=== PATIENT | male | born 1955 | race Caucasian/White ===

== ENCOUNTER 2020-04-28 08:55 | Outpatient (REF) | payer MEDICARE, MEDICAID, SELFPAY | END 2020-04-28 08:56 | disposition home or self-care (01) | LOC: HO.LAB 08:55 | PROVIDERS: Visit Provider Internal Medicine | DX: Z20.828 Contact with and (suspected) exposure to other viral communicable diseases (principal) | CPT/HCPCS: C9803; U0003 ==

== ENCOUNTER 2020-04-28 09:14 | Emergency (ER) | payer MEDICARE, MEDICAID, SELFPAY ==
[2020-04-28 09:28] VITALS: BP 149/75; PULSE 98; RESP 22; TEMP 37.2; O2SAT 98; BMI 47.5
--- NOTE | 2020-04-28 09:42 | ECG_ITS ---
Test Reason : SOB Blood Pressure : / mmHG Vent. Rate : 099 BPM Atrial Rate : 099 BPM P-R Int : 178 ms QRS Dur : 094 ms QT Int : 342 ms P-R-T Axes : 052 004 070 degrees QTc Int : 438 ms Normal sinus rhythm Normal ECG When compared with ECG of 09-SEP-2003 07:24, No significant change was found Referred By: Jyotsna Cooper Electronically Signed By:SARAH HERNANDEZ MD
--- NOTE | 2020-04-28 09:43 | XR_ITS ---
EXAMINATION: XR CHEST CLINICAL INFORMATION: SOB. COMPARISON: None TECHNIQUE: Frontal view of the chest was obtained. FINDINGS: Lungs are hyperexpanded but clear of acute process. Heart size and pulmonary vascularity is normal. No gross bony abnormality seen. XR/XR chest 1V IMPRESSION: No acute cardiopulmonary process seen.
--- NOTE | 2020-04-28 09:51 | ED.SOB ---
HPI - SOB/Dyspnea General Chief Complaint: Dyspnea Stated Complaint: sob Time Seen by Provider: 04/28/20 09:29 Source: patient Mode of arrival: ambulatory History of Present Illness HPI Narrative: 64-year-old male with a past medical history of amyloidosis on chemotherapy, CHF, diabetes, asthma, presenting to ED complaining of worsening SOB and dry cough x4 days. Also reports mild chest/back discomfort. 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 Reports chronic LE edema. Denies recent travel, fever, chills, diarrhea MD elicited complaint: shortness of breath Related Data Previous Rx's Medication Instructions Recorded azithromycin See Rx Instructions PO .COMPLEX #6 04/28/20 tab cefpodoxime 200 mg PO BID 7 Days #14 tab 04/28/20 Allergies Allergy/AdvReac Type Severity Reaction Status Date / Time No Known Allergies Allergy Unverified 01/24/20 17:11 [No Known Allergies*] Review of Systems Review of Systems: Constitutional: No Weight loss, No Fever, No Chills Cardiovascular: + Chest Pain, + SOB, + Edema Respiratory: + Cough, No Sputum, No Wheezing Gastrointestinal: No Nausea, No Vomiting, No Diarrhea, No Constipation, No Abdominal pain Musculoskeletal: No joint pain, No Myalgias, No Joint Swelling Skin: No Skin Lesions, No rash Yes all other systems are reviewed and are negative [facility] Past Medical History Attestation statement: The following information was validated with the patient. Medical History (Updated 04/28/20 @ 14:58 by SHAQ Portillo) CHF (congestive heart failure) COPD (chronic obstructive pulmonary disease) IDDM (insulin dependent diabetes mellitus) Myocardial infarct Social History Social History Advance Directives: No Advance Directives Information Provided: No Physical Exam Vital Signs: Vital Signs: Last Vital Signs Temp 99 F 04/28/20 09:28 Pulse 92 04/28/20 11:49 Resp 18 04/28/20 11:49 BP 144/84 H 04/28/20 11:49 Pulse Ox 98 04/28/20 09:28 Body Mass Index 47.5 Const: General: cooperative and healthy appearing Orientation/consciousness: patient oriented x3 Limitations: no limitations HENMT: Head: Yes normal to inspection Ears: hearing grossly normal bilaterally General nose exam: Normal external nose present Face and sinus: Yes normal facial exam Eyes: General: appearance normal, both eyes and all related structures EOM: EOMs intact bilaterally Neck: Neck: Yes normal visual inspection Resp: Effort & Inspection: normal respiratory effort Auscultation: no rales, no rhonchi, no wheezes and diminished lung sounds (Bibasilar) Cardio: Rate: regular rate Heart sounds: S1 normal heart sound present and S2 normal heart sound present GI: Inspection: Yes normal to inspection Palpation (GI): Soft to palpation, nontender, no guarding and not rigid Skin: Rashes: no rashes Wounds: no wounds Neuro: General: patient oriented x3 Gait exam (Neuro): Normal gait present Extrem: Other: + bilateral LE pitting edema Course Course Course Narrative: 1135--no leukocytosis, LDH and CRP mildly elevated, D-dimer 406 > will obtain CTA to rule out PE Initial troponin 37.4 > will obtain 3 hour repeat CXR unremarkable 1405--repeat troponin 51.4> no 50% increased delta, PR unlikely COVID-19, influenza, RSV negative 1446-- CTA with right lower lobe disease consistent with pneumonia. Evidence of PE or dissection. Prominent thoracic aorta measuring 4.2 cm. Right-sided mediastinal lymphadenopathy. And questionable thyroid soft tissue mass of other etiology > blood cultures and lactic order, low concern for severe sepsis >> CURB 65 score low risk > patient requesting to leave the emergency department now. Will give 1st dose of Azithromycin given in the ED. 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 On exam mildly tachypneic, nontoxic appearing, lungs with diminished breath sounds bibasilar. Concern for viral syndrome/COVID-19 vs CHF vs asthma exacerbation. PE on differential with patient's risk factors. Lower concern for ACS Plan: EKG, labs, CXR, COVID-19/RSV/influenza Lab Data Result diagrams: 04/28/20 10:30 04/28/20 10:30 Labs: Lab Results 04/28/20 04/28/20 04/28/20 Range/Units 10:30 10:30 10:30 WBC 7.4 (4.8-10.8) X10*3/uL RBC 3.17 L (4.60-5.80) X10*6/uL Hgb 10.0 L (14.0-18.0) g/dl Hct 30.9 L (42-52) % MCV 97.5 (80-98) fL MCH 31.5 (27.0-33.0) pg MCHC 32.4 (31.0-36.0) g/dl RDW 14.9 (11.0-16.0) % Plt Count 204 (160-400) X10*3/uL MPV 11.4 (9.4-12.4) fL Immature Gran % (Auto) 0.3 (0.0-0.4) % Neut % (Auto) 78.6 H (45-73) % Lymph % (Auto) 5.2 L (20-40) % [place] % (Auto) 14.9 H (2-11) % Eos % (Auto) 0.7 (0-4) % Baso % (Auto) 0.3 (0-2) % Lymph # (Auto) 0.4 L (1.2-4.9) X10*3/uL [place] # (Auto) 1.1 (0.1-1.2) X10*3/uL Eos # (Auto) 0.1 (0.0-0.4) X10*3/uL Baso # (Auto) 0.0 (0.0-0.2) X10*3/uL Abs Immat Gran (auto) 0.02 (0.00-0.03) X10*3/uL Absolute Neuts (auto) 5.8 (2.0-8.3) X10*3/uL Absolute Nucleated RBC 0.000 (0.0-0.012) X10*3/uL Nucleated RBC % (auto) 0.0 (0.0-0.2) /100WBC Smear Tech's Comments VERIFIED D-Dimer 406 NG/ML Sodium (135-145) mmol/L Potassium (3.3-5.1) mmol/l Chloride (96-108) mmol/L Carbon Dioxide (22-29) mmol/L Anion Gap (12-20) BUN (9-16) mg/dL Creatinine (0.5-1.4) mg/dL Estim Creat Clear Calc Estimated GFR Random Glucose (60-115) mg/dL Calcium (8.4-10.2) mg/dL Magnesium 2.1 (1.6-2.6) mg/dL Ferritin (20-250) ng/mL Total Bilirubin 0.3 (0.0-1.0) mg/dL Direct Bilirubin < 0.2 (0.0-0.5) mg/dL AST 24 (5-37) U/L ALT 19 (0-40) U/L Alkaline Phosphatase 73 (39-117) U/L Lactate Dehydrogenase (118-273) U/L Troponin I High Sens (<3.5-35.0) ng/L C-Reactive Protein (< or = 0.50) mg/dL B-Natriuretic Peptide (<100) pg/mL Total Protein 5.4 L (6.5-8.0) g/dL Albumin 3.4 L (3.5-5.0) g/dL Procalcitonin ng/mL Coronavirus (PCR) (Negative) Influenza Type A (PCR) (Negative) Influenza Type B (PCR) (Negative) RSV RNA Qual (PCR) (Negative) 04/28/20 04/28/20 04/28/20 Range/Units 10:30 10:30 10:30 WBC (4.8-10.8) X10*3/uL RBC (4.60-5.80) X10*6/uL Hgb (14.0-18.0) g/dl Hct (42-52) % MCV (80-98) fL MCH (27.0-33.0) pg MCHC (31.0-36.0) g/dl RDW (11.0-16.0) % Plt Count (160-400) X10*3/uL MPV (9.4-12.4) fL Immature Gran % (Auto) (0.0-0.4) % Neut % (Auto) (45-73) % Lymph % (Auto) (20-40) % [place] % (Auto) (2-11) % Eos % (Auto) (0-4) % Baso % (Auto) (0-2) % Lymph # (Auto) (1.2-4.9) X10*3/uL [place] # (Auto) (0.1-1.2) X10*3/uL Eos # (Auto) (0.0-0.4) X10*3/uL Baso # (Auto) (0.0-0.2) X10*3/uL Abs Immat Gran (auto) (0.00-0.03) X10*3/uL Absolute Neuts (auto) (2.0-8.3) X10*3/uL Absolute Nucleated RBC (0.0-0.012) X10*3/uL Nucleated RBC % (auto) (0.0-0.2) /100WBC Smear Tech's Comments D-Dimer NG/ML Sodium 140 (135-145) mmol/L Potassium 4.2 (3.3-5.1) mmol/l Chloride 109 H (96-108) mmol/L Carbon Dioxide 22 (22-29) mmol/L Anion Gap 13 (12-20) BUN 22 H (9-16) mg/dL Creatinine 1.39 (0.5-1.4) mg/dL Estim Creat Clear Calc 83.5 Estimated GFR 51 Random Glucose 82 (60-115) mg/dL Calcium 8.3 L (8.4-10.2) mg/dL Magnesium (1.6-2.6) mg/dL Ferritin 49 (20-250) ng/mL Total Bilirubin (0.0-1.0) mg/dL Direct Bilirubin (0.0-0.5) mg/dL AST (5-37) U/L ALT (0-40) U/L Alkaline Phosphatase (39-117) U/L Lactate Dehydrogenase 322 H (118-273) U/L Troponin I High Sens 37.4 H (<3.5-35.0) ng/L C-Reactive Protein 5.20 H (< or = 0.50) mg/dL B-Natriuretic Peptide 131 H (<100) pg/mL Total Protein (6.5-8.0) g/dL Albumin (3.5-5.0) g/dL Procalcitonin ng/mL Coronavirus (PCR) (Negative) Influenza Type A (PCR) (Negative) Influenza Type B (PCR) (Negative) RSV RNA Qual (PCR) (Negative) 04/28/20 04/28/20 04/28/20 Range/Units 10:30 10:31 12:59 WBC (4.8-10.8) X10*3/uL RBC (4.60-5.80) X10*6/uL Hgb (14.0-18.0) g/dl Hct (42-52) % MCV (80-98) fL MCH (27.0-33.0) pg MCHC (31.0-36.0) g/dl RDW (11.0-16.0) % Plt Count (160-400) X10*3/uL MPV (9.4-12.4) fL Immature Gran % (Auto) (0.0-0.4) % Neut % (Auto) (45-73) % Lymph % (Auto) (20-40) % [place] % (Auto) (2-11) % Eos % (Auto) (0-4) % Baso % (Auto) (0-2) % Lymph # (Auto) (1.2-4.9) X10*3/uL [place] # (Auto) (0.1-1.2) X10*3/uL Eos # (Auto) (0.0-0.4) X10*3/uL Baso # (Auto) (0.0-0.2) X10*3/uL Abs Immat Gran (auto) (0.00-0.03) X10*3/uL Absolute Neuts (auto) (2.0-8.3) X10*3/uL Absolute Nucleated RBC (0.0-0.012) X10*3/uL Nucleated RBC % (auto) (0.0-0.2) /100WBC Smear Tech's Comments D-Dimer NG/ML Sodium (135-145) mmol/L Potassium (3.3-5.1) mmol/l Chloride (96-108) mmol/L Carbon Dioxide (22-29) mmol/L Anion Gap (12-20) BUN (9-16) mg/dL Creatinine (0.5-1.4) mg/dL Estim Creat Clear Calc Estimated GFR Random Glucose (60-115) mg/dL Calcium (8.4-10.2) mg/dL Magnesium (1.6-2.6) mg/dL Ferritin (20-250) ng/mL Total Bilirubin (0.0-1.0) mg/dL Direct Bilirubin (0.0-0.5) mg/dL AST (5-37) U/L ALT (0-40) U/L Alkaline Phosphatase (39-117) U/L Lactate Dehydrogenase (118-273) U/L Troponin I High Sens 51.4 H (<3.5-35.0) ng/L C-Reactive Protein (< or = 0.50) mg/dL B-Natriuretic Peptide (<100) pg/mL Total Protein (6.5-8.0) g/dL Albumin (3.5-5.0) g/dL Procalcitonin 0.06 ng/mL Coronavirus (PCR) NEGATIVE (Negative) Influenza Type A (PCR) NEGATIVE (Negative) Influenza Type B (PCR) NEGATIVE (Negative) RSV RNA Qual (PCR) NEGATIVE (Negative) Discharge Plan Discharge Clinical Impression: Pneumonia Qualifiers: Pneumonia type: due to unspecified organism Laterality: right Lung location: lower lobe of lung Qualified Code(s): J18.9 - Pneumonia, unspecified organism Patient Disposition: Home, Self-Care Instructions: Dyspnea (ED) Additional Instructions: You tested negative for COVID-19, influenza, and RSV today in the ED However you do have pneumonia YOUR CT FINDINGS ALSO SHOWED NONSPECIFIC INFLAMED LYMPH NODES IN HER CHEST, AND A SOFT TISSUE MASS IN HER THYROID, THESE NEED TO BE EVALUATED BY YOUR DOCTOR CEFPODOXIME AND AZITHROMYCIN OR ANTIBIOTICS, TAKE PRESCRIBED IN ADDITION USE INHALER THAT WAS GIVEN TO THE ED AT HOME, AND HER NEBULIZER MACHINE IF HER SYMPTOMS PERSIST OR WORSEN, YOU DEVELOP FEVER, CONSTANT WORSENING SHORTNESS OF BREATH, OR CHEST PAIN RETURN TO THE ED Prescriptions: New cefpodoxime 200 mg tablet 200 mg PO BID 7 Days Qty: 14 RF: 0 azithromycin 250 mg tablet See Rx Instructions PO .COMPLEX Qty: 6 RF: 0 Referrals: ED Physician,Generic [Emergency Provider] - 2 days (YOUR DOCTOR) Physician,Unknown [Primary Care Provider] - 2 days
[2020-04-28] MEDS: Albuterol Sulfate 90 MCG 8 GM INHALER 4 PUFF INHALE (10:41)
[2020-04-28 10:50] LABS: Basophils Percent Auto 0.3 % (0-2); Eosinophils Absolute Auto 0.1 X10*3/uL (0.0-0.4); Eosinophils Percent Auto 0.7 % (0-4); Hematocrit 30.9 % (42-52); Imm Gran Abs Auto 0.02 X10*3/uL (0.00-0.03); Imm Gran Pct Auto 0.3 % (0.0-0.4); Lymphocytes Absolute Auto 0.4 X10*3/uL (1.2-4.9); Lymphocytes Percent Auto 5.2 % (20-40); MANUAL DIFF FLAG SCAN; Mean Corpuscular HGB Conc 32.4 g/dl (31.0-36.0); Mean Corpuscular Hemoglobin 31.5 pg (27.0-33.0); Mean Corpuscular Volume 97.5 fL (80-98); Mean Platelet Volume 11.4 fL (9.4-12.4); Monocytes Absolute Auto 1.1 X10*3/uL (0.1-1.2); Monocytes Percent Auto 14.9 % (2-11); Neutrophils Absolute Auto 5.8 X10*3/uL (2.0-8.3); Neutrophils Percent Auto 78.6 % (45-73); Platelet Count 204 X10*3/uL (160-400); Red Blood Count 3.17 X10*6/uL (4.60-5.80); Red Cell Distribution Width 14.9 % (11.0-16.0); SCAN SMEAR FLAG 1; White Blood Count 7.4 X10*3/uL (4.8-10.8)
[2020-04-28 10:52] LABS: D Dimer 406 NG/ML
[2020-04-28 11:11] LABS: Lactate Dehydrogenase 322 U/L (118-273)
[2020-04-28 11:15] LABS: Alanine Aminotransferase 19 U/L (0-40); Albumin Level 3.4 g/dL (3.5-5.0); Alkaline Phosphatase 73 U/L (39-117); Aspartate Amino Transferase 24 U/L (5-37); Bilirubin Direct < 0.2 mg/dL (0.0-0.5); Bilirubin Total 0.3 mg/dL (0.0-1.0); Magnesium 2.1 mg/dL (1.6-2.6); Total Protein 5.4 g/dL (6.5-8.0)
[2020-04-28 11:16] LABS: B Type Natriuretic Peptide 131 pg/mL (<100)
[2020-04-28 11:17] LABS: SLIDE REVIEW VERIFIED
[2020-04-28 11:20] LABS: Troponin-I High Sensitivity 37.4 ng/L (<3.5-35.0)
[2020-04-28 11:24] LABS: Influenza A PCR NEGATIVE (Negative); Influenza B PCR NEGATIVE (Negative); Resp Syncy Virus RNA Qual PCR NEGATIVE (Negative); SARS COV2 PCR INHOUSE NEGATIVE (Negative)
[2020-04-28 11:33] LABS: Ferritin 49 ng/mL (20-250); Procalcitonin 0.06 ng/mL
--- NOTE | 2020-04-28 11:37 | CT_ITS ---
EXAMINATION: CT ANGIOGRAM OF THE CHEST WITH AND WITHOUT CONTRAST (CT PULMONARY ANGIOGRAM FOR PE) CLINICAL INFORMATION: Reason for Exam Elevated D-dimer. On chemo. SOB COMPARISON: None TECHNIQUE: Prior to contrast administration, noncontrast localization images were obtained. Subsequently, multidetector volumetric imaging was performed from the thoracic inlet to below the diaphragms following the administration of 85 mL Omnipaque 350 intravenous contrast. No contrast reaction reported Sagittal, coronal, and MIP oblique sagittal reformatted images were obtained on the CT workstation, uploaded to PACS, and reviewed. This CT examination was performed using dose optimization techniques as appropriate, variously including the following: *Automated exposure control *Adjustment of mA and/or kV according to patient size (this includes techniques or standardized protocols for targeted exams where dose is matched to indication/reason for exam; i.e. extremities or head) *Use of iterative reconstruction technique Total exam dose-length product 638 mGy-cm FINDINGS: QUALITY OF STUDY/CONTRAST BOLUS: Satisfactory. PULMONARY ARTERIES: No central or segmental pulmonary emboli. THORACIC AORTA: There is some prominence of the ascending thoracic aorta to approximately 4.2 cm in diameter. No thoracic aortic dissection is seen. LUNG: Central airways are patent. There is some bronchial wall thickening seen without bronchiectasis to the right lower lobe where there is patchy interstitial and airspace disease present. No suspicious lung nodules are identified. PLEURA: No pleural effusion or pneumothorax. MEDIASTINUM: Normal heart size. Mild Coronary artery calcification present. There is calcification of the mitral annulus. No pericardial effusion. There is mediastinal lymphadenopathy seen within the right paratracheal region and subcarinal region no definite hilar lymphadenopathy appreciated.. No evidence of septal bowing or right heart strain. There is soft tissue density seen on most superior cut which may be related to substernal thyroid or mass of other etiology on the right. CHEST WALL/AXILLA: No axillary or internal mammary lymphadenopathy. OSSEOUS STRUCTURES: No suspicious destructive bony lesion identified. Multilevel degenerative disc disease is present. UPPER ABDOMEN: There is a 2.5 cm upper pole left renal cyst present. Upper pole left cortical renal atrophy is also present. There appears be hepatomegaly present. No reflux of contrast into the hepatic veins to suggest elevated right heart pressures. CT/CT angio chest PE protocol IMPRESSION: Right lower lobe disease consistent with pneumonia. No evidence of acute pulmonary artery embolus or thoracic aortic dissection. Prominent ascending thoracic aorta measuring up to 4.2 cm in diameter. Right sided mediastinal lymphadenopathy as well as subcarinal lymphadenopathy. Soft tissue density on most superior cuts in the right paratracheal region which may represent substernal thyroid or soft tissue mass of other etiology. VTE: negative
[2020-04-28 11:49] VITALS: BP 144/84; PULSE 92; RESP 18
[2020-04-28 12:02] LABS: Anion Gap 13 (12-20); Blood Urea Nitrogen 22 mg/dL (9-16); Calcium 8.3 mg/dL (8.4-10.2); Carbon Dioxide 22 mmol/L (22-29); Chloride 109 mmol/L (96-108); Creatinine Clr Calc Pharmacy 83.5; Estimated Glomerular Filt Rate 51; Glucose Random 82 mg/dL (60-115); Potassium 4.2 mmol/l (3.3-5.1); Sodium 140 mmol/L (135-145)
[2020-04-28] MEDS: iohexoL 350 MG/ML 100 ML INFUS..BTL IV (13:36)
[2020-04-28 13:51] LABS: Troponin-I High Sensitivity 51.4 ng/L (<3.5-35.0)
[2020-04-28 15:34] VITALS: BP 141/71; PULSE 88; RESP 18; TEMP 36.7; O2SAT 98
[2020-04-28] MEDS: Azithromycin 500 MG TABLET PO (15:35)
--- NOTE | 2020-04-28 15:39 | PC.NURSE ---
BLOOD CULTURES DRAWN PRIOR TO PT DEPARTURE, NO LACTATE DRAWN PER V/O SHAQ VALVERDE.
== END 2020-04-28 15:41 | disposition home or self-care (01) ==
PROVIDERS: Physician Assistant; Emergency Provider Emergency Medicine
DX: J18.9 Pneumonia, unspecified organism (principal); Z20.828 Contact with and (suspected) exposure to other viral communicable diseases; R93.89 Abnormal findings on diagnostic imaging of other specified body structures; E11.9 Type 2 diabetes mellitus without complications; Z79.4 Long term (current) use of insulin
CPT/HCPCS: 0241U; 36415; 71045; 71275; 80048; 80076; 82728; 83615; 83735; 83880; 84145; 84484; 85025; 85379; 86140; 87040; 93005; 99283; Q9967